=== PATIENT | male | born 1965 | race American Indian/Alaskan Native ===

== ENCOUNTER 2022-03-03 00:42 | Emergency (ER) | payer SELFPAY ==
--- NOTE | 2022-03-03 07:57 | Emergency Department Report ---
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 Patient states he just was released from penitentiary after serving a 10-year sentence and does not have anywhere to go. Patient states he was possibly to a intermediate house but was unable to get there in time. Patient states he needs help and assistance with residents. Patient denies any medical symptoms during the ED today. He denies fever/chills/nausea vomiting, chest pain, shortness of breath or any other complaints. ED Review of Systems ROS: Stated complaint: WEAKNESS, MED REFILL Other details as noted in HPI Comment: All other systems reviewed and negative ED Physical Exam - General Limitations: No Limitations General appearance: alert, in no apparent distress - Head Head exam: Present: atraumatic, normocephalic - Eye Eye exam: Present: normal appearance - ENT ENT exam: Present: mucous membranes moist - Neck Neck exam: Present: normal inspection - Respiratory Respiratory exam: Present: normal lung sounds bilaterally. Absent: respiratory distress - Cardiovascular Cardiovascular Exam: Present: regular rate, normal rhythm. Absent: systolic murmur, diastolic murmur, rubs, gallop - GI/Abdominal GI/Abdominal exam: Present: soft, normal bowel sounds - Rectal Rectal exam: Present: deferred - Extremities Exam Extremities exam: Present: normal inspection - Back Exam Back exam: Present: normal inspection - Neurological Exam Neurological exam: Present: alert, oriented X3 - Psychiatric Psychiatric exam: Present: normal affect, normal mood - Skin Skin exam: Present: warm, dry, intact, normal color. Absent: rash ED Course Vital Signs 03/03/22 00:47 Temperature 98 F Pulse Rate 84 Respiratory 16 Rate Blood Pressure 133/91 [Left] O2 Sat by Pulse 100 Oximetry ED Medical Decision Making - Medical Decision Making Patient presents the ED with assistance for case management.. Patient states he does take medication but cannot recall the name as he was given the medicine daily present. Case management evaluated patient. Resources given. Patient is in no acute distress still has any medical complaints at this time and need to follow-up to primary care physician. Referrals given to patient. Critical care attestation.: If time is entered above; I have spent that time in minutes in the direct care of this critically ill patient, excluding procedure time. ED Disposition Clinical Impression: Physically well, Homelessness Disposition: 01 HOME / SELF CARE / HOMELESS Is pt being admited?: No Does the pt Need Aspirin: No Condition: Stable Additional Instructions: Make sure to follow up with the primary care physician as discussed to obtain your medications.. If you have any worsening symptoms or develop new symptoms please return to ED immediately. Referrals: [facility] [place] [Outside] - 3-5 Days [facility] Submittable [facility] [Outside] - 3-5 Days [facility] [Outside] - 3-5 Days [facility] [Outside] - 3-5 Days Time of Disposition: 09:37
[2022-03-03 09:58] VITALS: BP 121/85
== END 2022-03-03 09:57 | disposition home or self-care (01) ==
LOC: ED 00:42
DX: Z00.00 Encounter for general adult medical examination without abnormal findings (principal); Z59.00 Homelessness unspecified
CPT/HCPCS: 99283